=== PATIENT | female | born 1970 | race Caucasian/White ===

== ENCOUNTER → 2023-10-24 09:52 | Outpatient (REF) | payer OTHER, SELFPAY | LOC: RCS 09:52 | PROVIDERS: ATTENDING PHYSICIAN Nurse Practitioner Gerontology; FAMILY PHYSICIAN Family Medicine | DX: R00.2 Palpitations (principal) | CPT/HCPCS: 93225; 93226 ==

== ENCOUNTER → 2024-02-23 19:43 | Outpatient (REF) | payer OTHER, SELFPAY | LOC: WDC 19:43 | PROVIDERS: ATTENDING PHYSICIAN Family Medicine | DX: Z12.31 Encounter for screening mammogram for malignant neoplasm of breast (principal) | CPT/HCPCS: 77063; 77067 ==

== ENCOUNTER → 2024-11-29 10:55 | Outpatient (REF) | payer OTHER, SELFPAY | LOC: RAD 10:55 | PROVIDERS: ATTENDING PHYSICIAN Nurse Practitioner Adult Health; FAMILY PHYSICIAN Family Medicine | DX: R05.3 Chronic cough (principal) | CPT/HCPCS: 71046 ==

== ENCOUNTER 2025-02-25 03:07 | Day surgery (SDC) | payer OTHER, SELFPAY ==
[2025-02-24 17:08] VITALS: BP 93/59
[2025-02-24 17:32] LABS: Hematocrit 39.1 % (37.0-47.0); Hemoglobin 13.2 g/dL (12.0-16.0); Mean Corp Hgb Conc. 33.8 g/dL (33.0-37.0); Mean Corpuscular Volume 88.9 fL (81.0-99.0); Nucleated Red Blood Cells % 0 %; Platelet Count 142 10^3/uL (130-400); Red Cell Dist. Width 13.6 % (11.5-14.5)
[2025-02-24 17:42] LABS: ALT (SGPT) 22 U/L (0-35); AST (SGOT) 26 U/L (14-36); Albumin 4.4 g/dl (3.5-5.0); Alkaline Phosphatase 56 U/L (38-126); Blood Urea Nitrogen 14 mg/dl (7-17); Calcium 8.8 mg/dl (8.4-10.2); Carbon Dioxide 24 mmol/L (22-30); Chloride 107 mmol/L (98-107); Glucose 123 mg/dl (70-99); Lipase 83 U/L (23-300); Potassium 3.9 mmol/L (3.5-5.1); Sodium 135 mmol/L (135-145); Total Protein 6.7 g/dl (6.3-8.2); eGFR > 60.00
[2025-02-24 20:44] VITALS: BMI 21.6
[2025-02-24 20:48] VITALS: BP 123/82
[2025-02-24 21:00] VITALS: BP 122/80
[2025-02-24 22:00] VITALS: BP 124/84
[2025-02-24] MEDS: NSS 1000 IV (22:44)
[2025-02-24] MEDS: TORADOL 15 MG IV (22:45)
[2025-02-24] MEDS: BENTYL 20 MG IM (22:50)
[2025-02-25] VITALS (10 sets, daily range): BP systolic 96–137; BP diastolic 58–77; BMI 21.9
--- NOTE | 2025-02-25 02:31 | ED.GENMED ---
History of Present Illness
General
Chief Complaint: Abdominal Symptoms
Source: patient
Time Seen by Provider: 02/24/25 21:18
History of Present Illness
History of Present Illness:
Note:
CHIEF COMPLAINT(S)
- Severe abdominal pain
- Diarrhea
HISTORY OF PRESENT ILLNESS
The patient is a male who presented with severe abdominal pain and diarrhea. The symptoms began after consuming seafood at a festival, where he experienced hives but no gastrointestinal symptoms. Upon returning home, he had two episodes of diarrhea
the following morning. Later, severe abdominal pain began around noon, described as a burning and stabbing sensation in the abdomen. The patient reported the pain as being roman to labor pains and compared it to pain he felt post-hernia surgery. The
severe pain and diarrhea persisted, prompting the patient to visit the emergency department. The patient also reported vomiting water. He has a history of diverticulitis but notes that this episode feels distinct and more intense. The pain has been
localized primarily to the right lower quadrant.
SOCIAL DETERMINANTS AFFECTING HEALTH
The patient reported a potential financial burden associated with undergoing a CT scan due to concerns about the requirement for oral contrast and the extended time it would take.
REVIEW OF SYSTEMS
- Gastrointestinal: Burning, stabbing abdominal pain predominantly in the right lower quadrant, diarrhea, vomiting.
- Integumentary: Hives after seafood consumption.
- General: No fever reported by the patient, with usual baseline temperature around 97.3�F.
PHYSICAL EXAM
General: Alert, oriented, in apparent discomfort due to abdominal pain.
Skin: Warm, dry.
Head: Normocephalic, atraumatic.
Neck: Supple, trachea midline.
Eyes, Ears, Nose, Mouth, and Throat: Oral mucosa moist.
Cardiovascular: Heart regular without murmurs.
Respiratory: No respiratory distress.
Gastrointestinal: Abdomen soft, diffusely tender, especially in the lower quadrants with normal bowel sounds.
Back: Normal range of motion, normal alignment.
Musculoskeletal: Normal range of motion, normal strength.
Neurological: Alert and oriented to person, place, time, and situation, no focal neurological deficit observed.
Psychiatric: Cooperative, appropriate mood and affect.
PLAN
- Administration of intravenous fluids.
- Administration of Ketorolac (Toradol) and Dicyclomine (Bentyl) for pain relief and to manage abdominal spasms.
- Monitor patient�s response to treatment and reassess the necessity of a CT scan if symptoms persist or escalate.
- Collect a stool sample for laboratory analysis to investigate potential infectious causes.
- Educate the patient on factors contributing to symptoms, considering the recent seafood intake and potential colitis.
- Evaluate laboratory results to guide further management decisions.
DIFFERENTIAL DIAGNOSIS
The Differential Diagnosis includes, in no particular order and is not limited to:
1. Infective Colitis
2. Appendicitis
3. Diverticulitis
4. Seafood Allergy
5. Viral Gastroenteritis
6. Bacterial Gastroenteritis
7. Ischemic Colitis
8. Food Poisoning
9. Irritable Bowel Syndrome
10. Inflammatory Bowel Disease
CARE-UPDATE
02/25/25 - 01:05
Pain is mild, rated at 3-4, primarily in the lower right abdomen. Considering low suspicion for appendicitis, a CT scan is suggested to assess for potential colitis and r/o appy. Prior patient experience with parasitic infection noted; however,
current focus is on potential bowel inflammation. If CT confirms colitis, stool cultures and relevant prescriptions will be provided with further monitoring.
Disposition:
SUMMARY OF ENCOUNTER
The patient presented to the emergency department with severe abdominal pain and diarrhea following seafood consumption. Given the persistent mild pain despite reassessment and initial suspicion of colitis due to diarrhea, a CT scan was performed.
Radiology interpreted the CT scan as showing acute appendicitis, altering the presumed diagnosis. The case was discussed with general surgery.
DISPOSITION
The patient is to be admitted for further management, including IV antibiotics.
ASSESSMENT
Acute appendicitis, as indicated by CT imaging in conjunction with clinical presentation.
MANAGEMENT OF THE PATIENTS CARE WAS DISCUSSED WITH
The case was discussed with Dr. Crawford from general surgery to coordinate inpatient management and treatment.
PLAN
Admission for further evaluation and management of acute appendicitis. Initiation of IV antibiotics as per surgical team recommendations.
INDEPENDENT REVIEW OF LABS AND INTERPRETATION OF TESTS
My independent review of CT imaging confirms acute appendicitis as per radiologists interpretation.
PATIENT EDUCATION AND COUNSELING
Explained to the patient the findings of acute appendicitis on imaging, necessitating admission and potential surgical intervention. Discussed the plan for IV antibiotics and monitoring.
MEDICAL DECISION MAKING
- Number and Complexity of Problems Addressed: Chronic conditions affecting care: history of diverticulitis. Differential Diagnosis includes infective colitis, appendicitis, diverticulitis, seafood allergy, viral gastroenteritis, bacterial
gastroenteritis, ischemic colitis, food poisoning, irritable bowel syndrome, inflammatory bowel disease.
- Data:
- Category 1: My independent interpretation of CT scan confirms acute appendicitis.
- Category 3: Case was discussed with Dr. Crawford, a general surgeon, regarding management and admission for IV antibiotics and likely appendectomy
- Risk: Consideration of Admission/Observation was made. Escalation of care including admission/observation is necessary given the confirmed diagnosis of appendicitis following CT imaging.
DIAGNOSIS
- Acute appendicitis (ICD-10-CM K35.80)
Past History
Past History
ED Past Medical History: Hypothyroidism (Synthroid), Other (interstitial cystitis) and Other (s/p , is anticoagulant. Lupus anticoagulant blood protein which gives you a high clotting factor and hypercoagulagulability.)
ED Past Surgical History: None
Social History
Tobacco: Non-smoker
Alcohol: Occasional
Drug: None
Personal:
Living: with family
Employment: Employed (teacher)
Family History
Family History: Other (Father with diverticulitis)
Phy Exam
Physical Exam
Physical Exam:
.
Course
Orders/Labs/Results
Orders:
Orders
02/24/25 17:16
Complete Blood Count/With Diff Urgent
Comprehensive Metabolic Panel Urgent
Lipase Urgent
02/24/25 22:16
STOOL [C difficile Antigen & Toxins] Urgent
JEANETTE Source: Feces/Stool
Specimen Description:
Date Specimen was Collected: 02/24/25
Time Specimen was Collected: 23:12
Stool Culture Urgent
JEANETTE Source: Feces/Stool
Specimen Description:
Date Specimen was Collected: 02/24/25
Time Specimen was Collected: 23:12
0.9% Sodium Chloride 1000 ml [Nss] 1,000 ml IV BOLUS
Dicyclomine HCl [Bentyl] 20 mg IM NOW STA
Ketorolac [Toradol] 15 mg IV NOW STA
02/25/25 01:03
CT Abd/Pel (IV only)-DH only Urgent
Comment:
Reason For Exam: lower abd pain
Abnormal Lab Results
02/24/25
17:16
MPV 10.6 H fL
(7.4-10.4)
Absolute Neuts (auto) 7.2 H 10^3/uL
(1.4-6.5)
Absolute Monos (auto) 0.7 H 10^3/uL
(0.1-0.6)
Neutrophils % 77.1 H %
(42.2-75.2)
Lymphocytes % 14.6 L %
(20.5-51.1)
Glucose 123 H mg/dl
(70-99)
02/24/25 17:16
02/24/25 17:16
Vital Signs
Initial and Last Documented VS:
Initial Vital Signs
Temp Pulse Resp BP Pulse Ox
98 F 75 16 93/59 99
02/24/25 17:08 02/24/25 17:08 02/24/25 17:08 02/24/25 17:08 02/24/25 17:08
Last Documented Vital Signs
Temp Pulse Resp BP Pulse Ox
98 F 75 16 104/65 96
02/24/25 17:08 02/24/25 17:08 02/24/25 17:08 02/25/25 00:27 02/25/25 00:30
*Pulse Oximetry
SaO2: 96
Oxygen Mode of Delivery: Room air
Patient hypoxic: no
*Critical Care Note
Total Time (30-74mins, 75-104mins- exclusive of procedures): Not Applicable
ED Attending Note
-
Portions of this chart may have been created with voice recognition software.� Occasional wrong word or��sound alike� substitutions may have occurred due to the inherent limitations of voice recognition software.
Discharge Plan
Departure
Patient Disposition: Home (Routine Discharge)
Date of Disposition: 02/25/25
Time of Disposition: 02:35
Admit to: Med/Surg
Patient with high blood pressure during this ER visit?: No
Discharge Problem:
Acute appendicitis
Prescriptions:
No Action
liothyronine 25 MICROGRAM tablet
50 mcg PO DAILY
naproxen sodium 550 MG tablet
550 mg PO PRN PRN (Reason: pain)
fluticasone propionate 1 SPRAY spray,suspension
1 spray inhalation DAILY
tramadol 50 mg tablet
50 mg PO Q6HPRN PRN (Reason: severe pain/breakthrough pain) Qty: 10 0RF
ondansetron 4 mg tablet,disintegrating
4 mg PO Q8H PRN (Reason: nausea and vomiting) 7 Days Qty: 14 0RF
multivitamin Tablet
1 tab PO DAILY
ascorbic acid (vitamin C) [Vitamin C] 1,000 mg Tablet
1,000 mg PO DAILY
levothyroxine [Unithroid] 75 mcg Tablet
75 mcg PO DAILY
aloe vera Capsule
PO
vitamin B complex [B Complex] Capsule
1 cap PO DAILY
Ustell 120-0.12 mg Capsule
1 cap PO QID
Fish Oil Capsule
PO
cholecalciferol (vitamin D3) [Vitamin D3] 125 mcg (5,000 unit) Tablet
125 mcg PO DAILY
Glucosamine Chondroitin 550-30-1 mg Capsule
PO
Referrals:
Zach Montes Jr., DO [Family Provider, Internal Medicine]
Interventions
Interventions:
*Risk Screen - Suicide Last Done: 02/24/25 17:08
*General Assessment Last Done: 02/24/25 17:08
*Neglect/Abuse Screening Last Done: 02/24/25 17:08
*ED- Fall Risk Assessment Last Done: 02/24/25 20:49
*ED COVID-19 Vaccine History Last Done: 02/24/25 20:49
MJ-Bcqamj-Kqolpljhnx Assessment Last Done: 02/24/25 20:49
Discharge Date and Time
Print Language: SETSWANA
[2025-02-25] MEDS: UNASYN IV (03:16)
[2025-02-25] MEDS: TORADOL 15 MG IV (03:22)
--- NOTE | 2025-02-25 04:39 | HPS.HSE ---
Addendum entered and electronically signed by Omero Crawford MD 02/25/25 12:38:
I saw and examined the patient.
The Office Rn's note was reviewed and I agree with the note.
Comment: 2 days abd pain, generalized initially then migrated to RLQ. Endorses nausea and anorexia, denies f/c/v. ttp to rlq on exam. OCTOR for lap appy. IV abx.
Original Note:
Family Physician
-
Family Physician: Zach Montes Jr.
Chief Complaint
-
abdominal pain and diarrhea
History of Present Illness
This is a pleasant 54 year old female who comes to the ED with intractable abdominal pain she describes as a burning sensation along with episodes of diarrhea. Apparently this all started after she attended a festival and ate seafood. She reported
breaking out in hives at that point. The next day she woke up with diarrhea along with increasing (burning-type) abdominal pain with a stabbing sensation. Her pain was on par with 'labor pains'. PMH includes general anxiety disorder, mild
intermittent asthma, osteopenia of lumbar spine, and ocular migraine.
Medical History
Past Medical History
Past Medical History: Reports Asthma (mild intermittent), CAD (carotid artery plaque), Hypercholesterolemia, Hypothyroidism (acquired), Psychiatric (MADELINE, severe depressive episode (son suicide), ocular migraine, osteopenia of spine, restless leg,
interstitial cystitis) and Other (sigmoid diverticulitis, leg length discrepancy (wears lift in left shoe))
Past Surgical History: Reports Other
Additional Past Surgical History:
umbilical hernia repair, C-sectionx1, sinus surgery x2
Social History
Tobacco: Non-smoker
Alcohol: Occasional
Drug: Marijuana
Personal:
Living: With Family
Employment: Employed
Family History
Family History: Other (melanoma)
Allergies / Home Medications
Allergies reflects when Allergies were last updated in [facility].
Home Medications with original date entered in [facility]
Allergy/Medication List:
Allergies
Allergy/AdvReac Type Severity Reaction Status Date / Time
Sulfa (Sulfonamide Allergy Hives Verified 02/24/25 17:11
Antibiotics)
seasonal allergies,mold,cats Allergy sneezing,wheezing,red Uncoded 02/24/25 17:11
eyes
Home Medications
fluticasone propionate 50 mcg/actuation nasal spray,suspension 1 spray inhalation DAILY 09/16/18
naproxen sodium 550 mg tablet 550 mg PO PRN PRN pain 09/16/18
aloe vera 1 cap PO DAILY 07/23/22
ascorbic acid (vitamin C) 1,000 mg tablet (Vitamin C) 1,000 mg PO DAILY 07/23/22
cholecalciferol (vitamin D3) 125 mcg (5,000 unit) tablet (Vitamin D3) 125 mcg PO DAILY 07/23/22
glucosamine sulf dipot chlr,msm,chond 550 mg-C 30 mg-steve 1 mg capsule (Glucosamine Chondroitin) 1 cap PO DAILY 07/23/22
levothyroxine 75 mcg tablet (Unithroid) 88 mcg PO DAILY 07/23/22
multivitamin 1 tab PO DAILY 07/23/22
omega-3 fatty acids 1 cap PO DAILY 07/23/22
vitamin B complex 1 cap PO DAILY 07/23/22
azelastine 137 mcg (0.1 %) nasal spray 1 spray intranasal BID 02/25/25
liothyronine 5 mcg tablet 5 mcg PO DAILY 02/25/25
lorazepam 2 mg tablet (Ativan) 2 mg PO BID PRN anxiety 02/25/25
paroxetine HCl 10 mg tablet 10 mg PO DAILY 02/25/25
progesterone micronized 100 mg capsule 100 mg PO HS 02/25/25
rosuvastatin 5 mg tablet (Crestor) 5 mg PO DAILY 02/25/25
Review of Systems
-
History Source: Patient and Coordinated Provider
Constitutional: Reports No Symptoms
EENT: Reports No Symptoms
Respiratory: Reports No Symptoms
Cardiac: Reports No Symptoms
Abdomen/GI: Reports Abdominal Pain
: Reports No Symptoms
Musculoskeletal: Reports No Symptoms
Skin: Reports No Symptoms
Neurological: Reports No Symptoms
Endocrine: Reports No Symptoms
Hematologic/Lymphatic: Reports No Symptoms
Psych: Reports Anxiety
Physical Exam
Vital Signs
Vital Signs
Temp Pulse Resp BP Pulse Ox
99.9 F 75 18 132/65 100
02/25/25 03:00 02/24/25 17:08 02/25/25 03:00 02/25/25 03:00 02/25/25 03:00
Physical Exam
General: Well Developed, Well Nourished, Comfortable and Conversant
HEENT: NormoCephalic, Moist mucous membranes and Atraumatic
Respiratory: Clear and Non Labored Respirations
Cardiac: Regular Rhythm
Breast: Deferred by me
GI: Soft and Tender
Rectal: Deferred by Provider
Genito-urinary: Clear Urine
Musculoskeletal: No Clubbing, No Cyanosis and No Edema
Skin: Warm and Dry
Neuro: Awake, Alert and AO x 3
Hematologic/Lymphatic: No Lymphadenopathy
Psych: Anxious and Other (one year anniversary of son's suicide 2 weeks ago)
Laboratory Results
-
02/24/25 17:16
02/24/25 17:16
Laboratory Results
Total Bilirubin 0.6 mg/dl (0.2-1.3) 02/24/25 17:16
AST 26 U/L (14-36) 02/24/25 17:16
ALT 22 U/L (0-35) 02/24/25 17:16
Alkaline Phosphatase 56 U/L (38-126) 02/24/25 17:16
Lipase 83 U/L (23-300) 02/24/25 17:16
Data Reviewed
-
CT Scan: Report Reviewed by me
Lab Data: Labs Reviewed by me
Impression/Plan
-
IMPRESSION: acute appendicitis
PLAN: This is a pleasant 54 year old female who comes to the ED with intractable abdominal pain she describes as a burning sensation along with episodes of diarrhea. Apparently this all started after she attended a festival and ate seafood. She
reported breaking out in hives at that point. The next day she woke up with diarrhea along with increasing (burning-type) abdominal pain with a stabbing sensation. Her pain was on par with 'labor pains'. PMH includes general anxiety disorder, mild
intermittent asthma, osteopenia of lumbar spine, and ocular migraine.
*acute appendicitis: Unasyn IV, zofran iv prn, dilaudid prn
*Diarrhea: No stools since arrival.
*MADELINE: Ativan when taking po per home med list.
*Hypothyroid: Levothyroxine, liothyronine
*Depression: Paroxetine (one year anniversary of son's suicide recently)
*Osteopenia: Resume vitamin D after discharge.
*Hyperlipidemia: Crestor
*DVT prophylaxis: TEDS, SCDs, oob
*Disposition: General surgery service Dr. Krystian Crawford
[2025-02-25] MEDS: OFIRMEV 100 IV (05:34)
[2025-02-25] MEDS: NSS 1000 IV (05:34)
--- NOTE | 2025-02-25 05:49 | PTCARENOTE ---
Patient arrived to unit from ED via stretcher. Patient ambulated safely from stretcher to bed in room 339-1 on . Patient AAOx3 and able to make needs known. C/o pain to RLQ. New order rec'd for IV ofirmiv for temp 101.0. See MAR for
administration. Oriented to unit. Call doyle within reach. Plan of care ongoing.
[2025-02-25] MEDS: ZOSYN 50 IV (10:35)
--- NOTE | 2025-02-25 10:39 | CM ---
Met with patient admitted from home with appendicitis. Plan lap appy today. Reviewed observation status with patient and signed form, and put on chart.
Patient and live in 2 level home with 2 steps to enter. Up full flight to bedrooms and bathrooms.
No DME, [facility] in past.
pharmacy: [facility]
PCP: Zach Moses
PLAN: HOme no needs.
--- NOTE | 2025-02-25 12:49 | OR.RPT ---
Operative Report
Operative Report
Primary Surgeon: Ty
Assisting: Mamta OSBORNE
Pre-op Diagnosis: Acute appendicitis
Post-op Diagnosis: Acute suppurative appendicitis
Procedure Performed: Laparoscopic appendectomy
Anesthesia Type: GETA
Specimen / Cultures: Appendix
Estimated Blood Loss: 5cc
Complications: None immediate
Operative Findings: Inflamed appendix with seropurulent exudate about the appendiceal mesentery, turbid fluid in the pelvis
Date of Surgery: 02/25/25
Indications: This 54F developed right lower quadrant abdominal pain and on workup was found to have acute appendicitis. Laparoscopic appendectomy was elected.
Description of procedure: The patient was placed on the operating table in the supine position. General anesthesia was induced. A time-out was completed verifying correct patient, procedure, site, positioning, and special equipment prior to
beginning this procedure. An orogastric tube was placed. The abdomen was prepped and draped in the usual sterile fashion. A stab incision was made in left upper quadrant and the Veress needle was inserted. Proper position was confirmed by aspiration
and saline meniscus test. The abdomen was insufflated with carbon dioxide to a pressure of 12 mmHg. The patient tolerated insufflation well.
A 5mm optical trocar was then inserted at the left lower quadrant. The laparoscope was inserted and the abdomen inspected. No injuries from initial trocar placement or Veress needle insertion were noted. Additional trocars were then inserted in the
following locations: a 12-mm trocar at the umbilicus and a 5-mm trocar midline in the suprapubic space. The abdomen was inspected and no abnormalities were found. The table was placed in the Trendelenburg position with the right side up. The tip of
the appendix was gently grasped with an atraumatic grasper and retracted toward the patient�s feet and abdominal wall. This maneuver exposed the appendiceal blood supply which was controlled with the voyant device. The mesentery was notable for
seropurulent exudate but no angela pus. Following this, a laparoscopic linear cutting stapler with a 45mm mae load was deployed and used to transect the appendix at its base. The appendix was placed in an endoscopic retrieval bag, removed through the
umbilical port, and passed off the table as a specimen.
We then turned our attention to the staple line, which was noted to be hemostatic. The pelvis was inspected and scant turbid fluid was suctioned. The umbilical trocar site was closed at the fascial level laparoscopically with 2-0 PDS under direct
vision. Secondary trocars were removed under direct vision and noted to be hemostatic. The laparoscope was withdrawn and the abdomen was allowed to collapse. The skin was closed with subcuticular sutures of 4-0 monocryl and topical skin adhesive.
The orogastric tube was removed.
The patient tolerated the procedure well and was taken to the postanesthesia care unit in stable condition.
The assistance of Mamta OSBORNE was required due to the complexity of the procedure. During the procedure she assisted with retraction, visualization, resection, and closure of the wound.
--- NOTE | 2025-02-25 12:52 | W.DS.TRANS ---
DC Summary - Ring Spinner
-
Discharge Instructions:
Discharge Diagnosis/Procedures Acute appendicitis status post laparoscopic
appendectomy
Diet Regular,As tolerated
Additional Diets Eat small meals at first until your appetite
returns
Activity No strenuous activity
Driving Restrictions No driving for 24 hours
Bathing Restrictions OK to Shower
Wound Care Allow the glue to flake off on its own
Instructions: Appendectomy - Discharge instructions
Stand-Alone Forms:
Changes to Home Medications: No
Discharge Medications:
DC Medications w/original date entered in [facility]
fluticasone propionate 50 mcg/actuation nasal spray,suspension 1 spray inhalation DAILY 09/16/18
naproxen sodium 550 mg tablet 550 mg PO PRN PRN pain 09/16/18
aloe vera 1 cap PO DAILY 07/23/22
ascorbic acid (vitamin C) 1,000 mg tablet (Vitamin C) 1,000 mg PO DAILY 07/23/22
cholecalciferol (vitamin D3) 125 mcg (5,000 unit) tablet (Vitamin D3) 125 mcg PO DAILY 07/23/22
glucosamine sulf dipot chlr,msm,chond 550 mg-C 30 mg-steve 1 mg capsule (Glucosamine Chondroitin) 1 cap PO DAILY 07/23/22
levothyroxine 75 mcg tablet (Unithroid) 88 mcg PO DAILY 07/23/22
multivitamin 1 tab PO DAILY 07/23/22
omega-3 fatty acids 1 cap PO DAILY 07/23/22
vitamin B complex 1 cap PO DAILY 07/23/22
amoxicillin 875 mg-potassium clavulanate 125 mg tablet 1 tab PO Q12 antibiotic #10 tabs 02/25/25
azelastine 137 mcg (0.1 %) nasal spray 1 spray intranasal BID 02/25/25
liothyronine 5 mcg tablet 5 mcg PO DAILY 02/25/25
lorazepam 2 mg tablet (Ativan) 2 mg PO BID PRN anxiety 02/25/25
ondansetron 4 mg disintegrating tablet 4 mg PO Q6H PRN nausea and vomiting #20 tabs 02/25/25
oxycodone 5 mg tablet 5 - 10 mg (1 - 2 x 5 mg) PO Q4HPRN PRN moderate to severe pain #20 tabs 02/25/25
paroxetine HCl 10 mg tablet 10 mg PO DAILY 02/25/25
progesterone micronized 100 mg capsule 100 mg PO HS 02/25/25
rosuvastatin 5 mg tablet (Crestor) 5 mg PO DAILY 02/25/25
Home Medication Changes
Pending Results: No
[2025-02-25] MEDS: SUBLIMAZE 25 MCG IV ×2 (13:23→13:35)
[2025-02-25] MEDS: ROXICODONE 10 MG PO (15:36)
== END 2025-02-25 16:59 | disposition home or self-care (01) ==
LOC: PACU 03:07
PROVIDERS: Emergency Medicine; ATTENDING PHYSICIAN Surgery; EMERGENCY PHYSICIAN Emergency Medicine; FAMILY PHYSICIAN Family Medicine
DX: K35.80 Unspecified acute appendicitis (principal); R10.31 Right lower quadrant pain
CPT/HCPCS: 44970; 74177; 80053; 83690; 85025; 88304; 96361; 96365; 96372; 96375; 99284; C1776; G0378; Q9967

== ENCOUNTER → 2025-08-04 10:15 | Outpatient (REF) | payer OTHER, SELFPAY | LOC: RAD 10:15 | PROVIDERS: ATTENDING PHYSICIAN Obstetrics & Gynecology; FAMILY PHYSICIAN Family Medicine | DX: N95.0 Postmenopausal bleeding (principal) | CPT/HCPCS: 76830; 76856 ==